=== PATIENT | male | born 1980 | race Caucasian/White ===

== ENCOUNTER 2017-02-28 23:29 | Emergency (ER) | payer MEDICAID ==
[2017-02-28 23:40] VITALS: TEMP 97.9
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
[2017-03-01] MEDS ORDERED: IBUPROFEN 600 MG TAB PO ONE (00:11)
[2017-03-01] MEDS ORDERED: traMADol 50 MG TAB PO ONE (00:11)
[2017-03-01 00:58] VITALS: BP 126/68; PULSE 86; RESP 14; O2SAT 92
== END 2017-03-01 00:58 | disposition home or self-care (01) ==
PROC: 2W3DX1Z Immobilization of Left Lower Arm using Splint (ICD-10-PCS; principal; 2017-02-28)
DX: S52.502A Unspecified fracture of the lower end of left radius, initial encounter for closed fracture (principal); S63.502A Unspecified sprain of left wrist, initial encounter; F17.200 Nicotine dependence, unspecified, uncomplicated; V18.0XXA Pedal cycle driver injured in noncollision transport accident in nontraffic accident, initial encounter; Y92.410 Unspecified street and highway as the place of occurrence of the external cause; Y99.8 Other external cause status; Y93.55 Activity, bike riding

== ENCOUNTER 2017-04-30 18:08 | Inpatient (IN) | payer MEDICAID ==
[2017-04-30] MEDS ORDERED: ACETAMINOPHEN 500 MG TAB PO ONE (18:29)
[2017-04-30] MEDS ORDERED: IBUPROFEN 200 MG TAB PO ONE (18:29)
[2017-04-30] MEDS ORDERED: NS 2,000 ML IV ONE (18:29)
--- NOTE | 2017-04-30 18:32 | EDPHY ---
H & P Stated Complaint: THROAT PAIN FEVER X 3 DAYS - Personal History Current Tetanus/Diphtheria Vaccine: No Current Tetanus Diphtheria and Acellular Pertussis (TDAP): No - Medical/Surgical History Hx Asthma: No Hx Chronic Respiratory Disease: No Hx Diabetes: No Hx Cardiac Disease: No Hx Renal Disease: No Hx Cirrhosis: No Hx Alcoholism: No Hx HIV/AIDS: No Hx Splenectomy or Spleen Trauma: No Other PMH: ASTHMA. IV DRUG USERS CLEAN 7 YEARS - Social History Smoking Status: Heavy smoker Time Seen by Provider: 04/30/17 18:22 HPI/ROS: CHIEF COMPLAINT: Flu-like symptoms x3 days HISTORY OF PRESENT ILLNESS: 36-year-old homeless male, daily smoker, no influenza vaccination, took the bus to the ER complaining of 3 days of flu-like symptoms including myalgias, fever, chills, cough, sore throat. No history of chronic pulmonary disease. No nuchal rigidity no abdominal pain. No nausea or vomiting. No rash. No back pain.. PRIMARY CARE PROVIDER:None REVIEW OF SYSTEMS: A ten point review of systems was performed and is negative with the exception of the items mentioned in the HPI PAST MEDICAL & SURGICAL HISTORY: No influenza vaccination SOCIAL HISTORY: Daily smoker. Homeless. PHYSICAL EXAM (Prior to examination, patient consented to physical exam, hands were washed and my usual and customary physical exam procedures followed) 1) GENERAL: Well-developed, well-nourished, alert and oriented. Appears nontoxic 2) HEAD: Normocephalic, atraumatic 3) HEENT: Pupils equal, round, reactive to light bilaterally. Sclera anicteric. Nasopharynx, oropharynx, clear, no lesions. No tonsillar enlargement or exudate. Posterior oropharynx is erythematous. Ears bilaterally with normal tympanic membranes. 4) NECK: Full range of motion, no meningeal signs. No adenopathy 5) LUNGS: Clear auscultation bilaterally, no wheezes, no rhonchi, no retractions. 6) HEART: Regular rate and rhythm, no murmur, no heave, no gallop. 7) ABDOMEN: No guarding, no rebound, no focal tenderness, negative McBurney's, negative Braxton's, negative Rovsing's, negative peritoneal sign, 8) MUSCULOSKELETAL: Moving all extremities, no focal areas of tenderness, no obvious trauma. No peripheral edema or discoloration. 9) BACK: No CVA tenderness. 10) SKIN: No rash, no petechiae. 11) Psychiatric: Patient is oriented X 3, there is no agitation. DIFFERENTIAL DIAGNOSIS: In no particular include but limited to influenza, pneumonia, bronchitis, meningitis (Rafa Duggan) Constitutional: Initial Vital Signs Temperature (C) 39.3 C H 04/30/17 18:10 Heart Rate 148 H 04/30/17 18:10 Respiratory Rate 18 04/30/17 18:10 Blood Pressure 125/87 H 04/30/17 18:10 O2 Sat (%) 94 04/30/17 18:10 O2 Delivery Mode Room Air Allergies/Adverse Reactions: No Known Allergies Allergy (Unverified 02/28/17 23:36) Home Medications: Medication Instructions Recorded NK [No Known Home Meds] 02/28/17 Medical Decision Making - Diagnostics Imaging Results: Imaging Impressions Chest X-Ray 04/30/17 18:29 Impression: Right upper lobe pneumonia. Recommend follow-up chest x-ray in 6-[address] weeks to verify resolution[address] Dr[address] Miranda discussed these findings by telephone with Rafa Duggan on 2017 at 19:00 hours. Images reviewed by myself (Rafa Duggan) ED Course/Re-evaluation: 6:30 p.m.: Patient is tachycardic, febrile. Will obtain IV access, administer ibuprofen, acetaminophen, IV hydration, laboratory studies. Care of patient under supervision of secondary supervising physician Dr Soares with whom I discussed care 8:00 p.m.: Severe sepsis to cleared on this patient, lactate 2.6. Given IV hydration. Given ibuprofen, Motrin, remains tachycardic and febrile. Noted to have a right upper lobe infiltrate with negative influenza. He is maintain normal saturations. He is homeless. I do not think that discharge is appropriate for this patient. Plan will be admission, ceftriaxone, azithromycin. Consultation with hospitalist Dr. Chaudhry who will admit patient. (Rafa Duggan) I have discussed case with Bassem Duggan. We have evaluated the laboratory studies I have evaluated the patient. This patient has lightly elevated lactate and a a right middle lobe infiltrate. We will treat him for community- acquired pneumonia. We will repeat a lactate were hydrated him. I do not believe this patient has severe sepsis. He will be admitted on spray ache. He has received azithromycin and ceftriaxone and IV hydration. (Kaz Soares ) - Data Points Laboratory Results: Laboratory Results 04/30/17 18:30 04/30/17 18:30 04/30/17 04/30/17 04/30/17 19:00 18:35 18:30 WBC RBC Hgb Hct MCV MCH MCHC RDW Plt Count MPV Neut % (Auto) Lymph % (Auto) [place] % (Auto) Eos % (Auto) Baso % (Auto) Nucleat RBC Rel Count Absolute Neuts (auto) Absolute Lymphs (auto) Absolute Monos (auto) Absolute Eos (auto) Absolute Basos (auto) Absolute Nucleated RBC Immature Gran % Seg Neutrophils % Band Neutrophils % Lymphocytes % Monocytes % Immature Gran # Absolute Seg Neuts Absolute Band Neuts Absolute Lymphocytes Absolute Monocytes RBC/WBC/PLT Morphology Platelet Estimate VBG Lactic Acid 2.6 mmol/L H mmol/L (0.7-2.1) Sodium 131 mEq/L L mEq/L (134-144) Potassium 3.9 mEq/L mEq/L (3.5-5.2) Chloride 95 mEq/L L mEq/L (97-110) Carbon Dioxide 22 mEq/l mEq/l (22-31) Anion Gap 14 mEq/L mEq/L (8-16) BUN 9 mg/dL mg/dL (7-23) Creatinine 0.6 mg/dL L mg/dL (0.7-1.3) Estimated GFR > 60 Glucose 139 mg/dL H mg/dL (70-100) Calcium 9.3 mg/dL mg/dL (8.5-10.4) Nasal Influenza A PCR NEGATIVE FOR FLU A (NEGATIVE) Nasal Influenza B PCR NEGATIVE FOR FLU B (NEGATIVE) 04/30/17 18:30 WBC 15.37 10^3/uL H 10^3/uL (3.80-9.50) RBC 4.48 10^6/uL 10^6/uL (4.40-6.38) Hgb 15.4 g/dL g/dL (13.7-17.5) Hct 41.4 % % (40.0-51.0) MCV 92.4 fL fL (81.5-99.8) MCH 34.4 pg H pg (27.9-34.1) MCHC 37.2 g/dL H g/dL (32.4-36.7) RDW 12.3 % % (11.5-15.2) Plt Count 283 10^3/uL 10^3/uL (150-400) MPV 9.2 fL fL (8.7-11.7) Neut % (Auto) Not Reported Lymph % (Auto) Not Reported [place] % (Auto) Not Reported Eos % (Auto) Not Reported Baso % (Auto) Not Reported Nucleat RBC Rel Count 0.0 % % (0.0-0.2) Absolute Neuts (auto) Not Reported Absolute Lymphs (auto) Not Reported Absolute Monos (auto) Not Reported Absolute Eos (auto) Not Reported Absolute Basos (auto) Not Reported Absolute Nucleated RBC 0.00 10^3/uL 10^3/uL (0-0.01) Immature Gran % Not Reported Seg Neutrophils % 79 % % Band Neutrophils % 12 % % Lymphocytes % 8 % % Monocytes % 1 % % Immature Gran # Not Reported Absolute Seg Neuts 12.14 10^/uL H 10^/uL (1.70-6.50) Absolute Band Neuts 1.84 10^3/uL H 10^3/uL (0.00-0.70) Absolute Lymphocytes 1.23 10^3/uL 10^3/uL (1.00-3.00) Absolute Monocytes 0.15 10^3/uL L 10^3/uL (0.30-0.80) RBC/WBC/PLT Morphology NORMAL (NORMAL) Platelet Estimate ADEQUATE (ADEQ) VBG Lactic Acid Sodium Potassium Chloride Carbon Dioxide Anion Gap BUN Creatinine Estimated GFR Glucose Calcium Nasal Influenza A PCR Nasal Influenza B PCR Medications Given: Ceftriaxone Sodium/Dextrose (Rocephin 1 Gm (Premix)) 50 mls @ 100 mls/hr IV DAILY SUKI PRN Reason: Protocol Stop: 05/30/17 19:59 Last Admin: 04/30/17 20:06 Dose: 50 mls Discontinued Medications Acetaminophen (Tylenol) 1,000 mg PO EDNOW ONE Stop: 04/30/17 18:30 Last Admin: 04/30/17 18:34 Dose: 1,000 mg Sodium Chloride (Ns) 2,000 mls @ 0 mls/hr IV ONCE ONE PRN Reason: Wide Open Stop: 04/30/17 18:30 Last Admin: 04/30/17 18:34 Dose: 2,000 mls Ibuprofen (Motrin) 800 mg PO EDNOW ONE Stop: 04/30/17 18:30 Last Admin: 04/30/17 18:34 Dose: 800 mg Departure - Departure Disposition: [facility] Inpatient Acute Clinical Impression: Pneumonia Qualifiers: Pneumonia type: due to unspecified organism Laterality: right Lung location: upper lobe of lung Qualified Code(s): J18.1 - Lobar pneumonia, unspecified organism Condition: Fair
[2017-04-30 18:44] LABS: PLATELET COUNT 283 10^3/uL (150-400)
[2017-04-30] MEDS ORDERED: AZITHROMYCIN IV 500 MG in D5W 250 ML IV SCH (20:00)
[2017-04-30] MEDS ORDERED: ONDANSETRON DISINTEGRATING 4 MG TAB PO PRN (21:16)
[2017-04-30] MEDS ORDERED: ONDANSETRON 4 MG/2 ML VIAL IVP PRN (21:16)
[2017-04-30] MEDS ORDERED: LR 1,000 ML IV SCH (21:30)
--- NOTE | 2017-04-30 21:54 | GHP ---
[f rep st] HISTORY AND PHYSICAL DATE OF ADMISSION: 04/30/2017 CHIEF COMPLAINT: Feeling poorly. HISTORY OF PRESENT ILLNESS: 36-year-old homeless man, who presents with 2 days of fevers, chills, co ugh, not very productive of sputum. Overall feeling very poorly. He has no known immunodeficiencies but has never been tested for HIV. He has a history of IV drug use but he has not used for 7 years. He has not really been exposed to any other sick contacts as he does not stay at the [facility] er frequently. PAST MEDICAL/SURGICAL HISTORY: History of IV drug abuse, now sober. MEDICATIONS: Please see medication reconciliation. ALLERGIES: None. SOCIAL HISTORY: He is homeless. He occasionally drinks alcohol but not regularly. FAMILY HISTORY: Reviewed and noncontributory. REVIEW OF SYSTEMS: 10-point review of systems is conducted and is negative except per HPI. PHYSICAL EXAM: VITAL SIGNS: Blood pressure 113/67, heart rate 112, respiration rate 16, sat 96% on room air. Initial temperature 39. GENERAL: The patient is a pleasant man, who appears somewhat unco mfortable. He is sweaty. HEENT: Shows him to be normocephalic, atraumatic. CARDIOVASCULAR: Shows him to be tachycardic. There are no murmurs, rubs, or gallops. PULMONARY: Mild crackles on the ri ght side of his lungs. Otherwise, he is not in any significant respiratory distress. ABDOMEN: Soft , nontender, nondistended. SKIN: No rash. : No White. NEUROLOGIC: Shows him to be alert and o riented x3. He is moving all extremities. PSYCHIATRIC: Normal mood and affect. LABS: White count is 15.3. Lactate 2.6 down to 2.2. Sodium 131, creatinine 0.6. Is negative for i nfluenza. DATA: 1. Chest x-ray, which I personally viewed and interpreted, shows right upper lobe pneumonia. 2. I discussed this with Bassem Gonzáles. Will admit to Med Surg. IMPRESSION AND PLAN: 1. Community-acquired pneumonia: Will check full respiratory PCR, sputum culture. Check procalcito sita. Agree with treatment with Rocephin and azithromycin. 2. History of IV drug abuse: I discussed with him checking HIV and hepatitis; he is agreeable to is. I have ordered these. He has been clean for some time now. 3. Sepsis evidenced by leukocytosis, tachycardia, fever in the setting of a pneumonia: He has been treated aggressively with fluids. We will follow his vitals closely and his response to antibiotics. /[id number]/MODL
[2017-04-30] MEDS: LR 1,000 ML IV SCH (22:59)
[2017-04-30] MEDS: ACETAMINOPHEN 325 MG TAB PO PRN (23:47)
[2017-04-30] MEDS: diphenhydrAMINE 25 MG CAP PO PRN (23:47)
[2017-05-01 02:59] LABS: HEPATITIS B SURFACE ANTIGEN NEGATIVE (NEGATIVE)
[2017-05-01 03:06] LABS: HEPATITIS A ANTIBODY IGM (BCH) NEGATIVE (NEGATIVE); HEPATITIS B CORE AB IGM NEGATIVE (NEGATIVE)
[2017-05-01 03:17] LABS: HEPATITIS C ANTIBODY TOTAL NEGATIVE (NEGATIVE)
[2017-05-01 05:20] LABS: PLATELET COUNT 252 10^3/uL (150-400)
[2017-05-01] MEDS: ACETAMINOPHEN 325 MG TAB PO PRN ×2 (06:31→11:40)
[2017-05-01] MEDS: LR 1,000 ML IV SCH ×2 (06:32→17:24)
--- NOTE | 2017-05-01 08:00 | PDMN ---
Medical Necessity Medical necessity: est los>2mn for CAP with sepsis evidenced by leukocytosis, tachycardia, and fever; admit for IV abx; comorbid homelessness, hx IVDA; per order and H&P 04/30/17
[2017-05-01] MEDS: AZITHROMYCIN IV 500 MG in D5W 250 ML IV SCH (08:23)
--- NOTE | 2017-05-01 11:58 | HOSPPROG ---
Hospitalist Progress Note Assessment/Plan: New patient encounter #Sepsis #Community Acquired pneumonia #Homelessness #hx of IVDA, clean for several years Plan: -cont IVF, will decrease slightly -cont Rocephin and Azithromycin -Start SCD's -Provide [place] for pain mgmt, he is requesting this and is aware of all risks given his hx of IVDA -Dispo: inpatient Subjective: still with tachycardia. Still not feeling good. Although feels better. BP ok. Objective: Vital Signs Temp Pulse Resp BP Pulse Ox 37.2 C 99 18 130/85 H 100 05/01/17 11:32 05/01/17 11:32 05/01/17 11:32 05/01/17 11:32 05/01/17 11:32 Laboratory Results 05/01/17 04:39 05/01/17 04:39 04/30/17 05/01/17 05/02/17 05:59 05:59 05:59 Output Total 1500 Balance -1500 - Physical Exam Constitutional: no apparent distress Eyes: PERRL Ears, Nose, Mouth, Throat: moist mucous membranes, hearing normal Cardiovascular: regular rate and rhythym, No edema Respiratory: no respiratory distress, reduced air movement Gastrointestinal: normoactive bowel sounds, soft, non-tender abdomen Skin: warm Musculoskeletal: full muscle strength Neurologic: AAOx3 Psychiatric: interacting appropriately, not anxious, not encephalopathic, thought process linear Lymph, Heme, Immunologic: No petechiae ICD10 Worksheet Patient Problems: Problems Problem Status Onset Pneumonia Acute
[2017-05-01] MEDS: HYDROCODONE/APAP 5/325 TAB PO PRN ×3 (12:48→22:04)
--- NOTE | 2017-05-01 15:38 | ASMTCMCOM ---
CM Note CM Note Notes: Pt. is a 36-year-old man admitted with PNA. Pt. is homeless and living mostly outdoors at this time. Hx. IVDU - sober some 7 years per notes. SWer met w/ Pt. in room today. Pt. friendly and interested in getting back on his feet. Pt. states he has a court date in . [place] on 05/05/17. Interested in trying to get a continuance. SWer provided phone number for [facility] for Pt. Also left [facility] for Jayshree Dominguez, [facility] Homeless Navigator to see if she knows how to get bus ticket for Pt. to make his Court date in [facility]. Pt. states he has two sons ages 17 and 14 and "hopes to get [his] family back together" soon. Pt. states he underestimated how hard it would be to move back to [place] as winter was approaching. Pt. states he left [place] in 2009. 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 Although Pt. has been frustrated by [place] [facility] telling him to go to [facility] and not admitting him there, he is willing to take [facility] bed and go next day to [facility]. CATALINO/ONI to follow. Date Signed: 05/01/2017 03:38 PM Electronically Signed By:Genevieve Newell LCSW
[2017-05-01] MEDS: diphenhydrAMINE 25 MG CAP PO PRN (22:04)
[2017-05-02] MEDS: HYDROCODONE/APAP 5/325 TAB PO PRN ×4 (04:23→20:27)
[2017-05-02] MEDS: LR 1,000 ML IV SCH (04:24)
[2017-05-02 05:09] LABS: PLATELET COUNT 274 10^3/uL (150-400)
[2017-05-02] MEDS: AZITHROMYCIN IV 500 MG in D5W 250 ML IV SCH (08:22)
--- NOTE | 2017-05-02 10:08 | HOSPPROG ---
Hospitalist Progress Note Assessment/Plan: #Sepsis, resolving #Community Acquired pneumonia #Homelessness #hx of IVDA, clean for several years Plan: -trial off IVF -cont Rocephin and Azithromycin -cont SCD's -cont [place] for pain mgmt, he is requesting this and is aware of all risks given his hx of IVDA -Dispo: cont inpatient Subjective: Feels better. Still with cough. BP better. Tachycardia resolved. Still on RA. Still feels weak. No CP. NO SOB. No pedal edema Objective: Vital Signs Temp Pulse Resp BP Pulse Ox 36.9 C 65 16 123/81 H 96 05/02/17 07:58 05/02/17 07:58 05/02/17 07:58 05/02/17 07:58 05/02/17 07:58 Laboratory Results 05/02/17 04:20 05/01/17 04:39 05/01/17 05/02/17 05/03/17 05:59 05:59 05:59 Intake Total 1996 Output Total 1500 225 Balance -1500 1772 - Physical Exam Constitutional: no apparent distress Eyes: PERRL, EOMI Ears, Nose, Mouth, Throat: moist mucous membranes, hearing normal Cardiovascular: regular rate and rhythym, No edema Respiratory: rhonchi Gastrointestinal: normoactive bowel sounds, soft, non-tender abdomen Genitourinary: no bladder fullness Neurologic: AAOx3 Psychiatric: interacting appropriately, not anxious, not encephalopathic Lymph, Heme, Immunologic: No petechiae ICD10 Worksheet Patient Problems: Problems Problem Status Onset Pneumonia Acute
--- NOTE | 2017-05-02 17:21 | ASMTCMCOM ---
CM Note CM Note Notes: [facility] Homeless Navigator, Jayshree Dominguez and Sabine connected over email today. Jayshree stated Pt. could call her at . Gave Pt. information about Jayshree's number to seek bus transportation to [facility] date and also information about [facility] site. Pt. would also like [facility] bed on day of d/c. Pt. very grateful and a pleasure to meet with. CM to follow. Date Signed: 05/02/2017 05:20 PM Electronically Signed By:Genevieve Newell LCSW
[2017-05-02] MEDS: diphenhydrAMINE 25 MG CAP PO PRN (23:29)
[2017-05-03] MEDS ORDERED: AMOXICILLIN/CLAVULANATE POT 875/125 MG TAB PO SCH
[2017-05-03] MEDS ORDERED: HYDROCODONE/APAP 5/325 TAB PO SCH
[2017-05-03 08:12] VITALS: RESP 14
[2017-05-03] MEDS: HYDROCODONE/APAP 5/325 TAB PO PRN ×2 (08:13→13:15)
[2017-05-03] MEDS: AZITHROMYCIN IV 500 MG in D5W 250 ML IV SCH (09:07)
--- NOTE | 2017-05-03 10:54 | PDDCSUM ---
Discharge Summary Discharge Summary: 36 yo homeless male admitted with sepsis and CAP. Now better. Treated with Rocephin and Azithromycin will complete Augment regimen on RA VSS F/U: PCP NEXT WEEK DDX #Sepsis, resolving #Community Acquired pneumonia #Homelessness #hx of IVDA, clean for several years Exam: VSS, RA NAD AAOX3 RRR MILDY COARSE BREATH SOUNDS, NORMAL WORK OF BREATHING S/NT/ND NO LE EDEMA MEDS: SEE MED REC. NORCO AND AUGMENTIN PROVIDED TOTAL CARE TIME SPENT ON D/C IS 35 MINS
[2017-05-03 12:00] VITALS: BP 128/80; PULSE 79; TEMP 98.4; O2SAT 97
--- NOTE | 2017-05-03 15:36 | ASDISCHSUM ---
Discharge Information Plan Status:Homeless/Skilled Nursing Medically Cleared to Leave: Discharge Date:05/03/2017 02:56 PM CM D/C Disposition: ADT D/C Disposition:Home, Routine, Self-Care Projected Discharge Date:05/03/2017 02:56 PM Transportation at D/C:Bus Ticket Discharge Delay Reason: Follow-Up Date:05/03/2017 02:56 PM Discharge Slot: Final Diagnosis: Placement Information Patient Contact Information Contact Name:BURAK Relationship:Life Partner Address:[address] Work Phone: City:[place] Phone: State/Zip Code:[place] [address] Email: Financial Information Financial Class: Primary Plan Desc:[employer] [place] Primary Plan Number:[id number] Secondary Plan Desc: Secondary Plan Number: Assessment Information [facility] CM Progress Note CM Note CM Note Notes: Pt. is a 36-year-old man admitted with PNA. Pt. is homeless and living mostly outdoors at this time. Hx. IVDU - sober some 7 years per notes. Sabine met w/ Pt. in room today. Pt. friendly and interested in getting back on his feet. Pt. states he has a court date in [facility] on 05/05/17. Interested in trying to get a continuance. Sabine provided phone number for [facility] for Pt. [place] [facility] [place]ayshree Dominguez, [facility] Homeless Navigator to see if she knows how to get bus ticket for Pt. to make his Court date in [facility]. Pt. states he has two sons ages 17 and 14 and "hopes to get [his] family back together" soon. Pt. states he underestimated how hard it would be to move back to [place] as winter was approaching. Pt. states he left [place] in 2009. 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 Although Pt. has been frustrated by [facility] telling him to go to [facility] and not admitting him there, he is willing to take [facility] Skilled Nursing bed and go next day to [facility]. CATALINO/ONI to follow. Date Signed: 05/01/2017 03:38 PM Electronically Signed By:Genevieve Newell LCSW [facility] CM Progress Note CM Note CM Note Notes: [facility] Homeless Navigator, Jayshree Dominguez and Sabine connected over email today. Jayshree stated Pt. could call her at . Gave Pt. information about Jayshree's number to seek bus transportation to [facility] [address] date and also information about [facility] site. Pt. would also like [facility] Skilled Nursing bed on day of d/c. Pt. very grateful and a pleasure to meet with. ONI to follow. Date Signed: 05/02/2017 05:20 PM Electronically Signed By:Genevieve Newell LCSW Case Management Discharge Plan Note Case Management Discharge Discharge Order Complete? Answers: Yes Patient to Obtain Answers: via MAP Medications Transportation Arranged Answers: Bus Tokens Discharge Comments Notes: SWer provided Pt. w/ information on how to get [facility] appt, how to get to [facility] intake, and arranged for [facility] bed for tonight. Provided bus pass. [facility]ed complete meds due to weekend and because Pt. has no money at all. Pt. plans to follow up w/ Liz Garcia to get greyhound bus pass to [facility] for Court date. Pt. grateful. Date Signed: 05/03/2017 03:35 PM Electronically Signed By:Genevieve Newell LCSW Intervention Information Intervention Type:*Incorrect Registration Date of Service:05/01/2017 07:53 AM Patient Type:Observation Staff Member:OJ Alfonso, Hannah Hours: Discipline: Severity: Comment:
== END 2017-05-03 14:56 | disposition home or self-care (01) | DRG 871 ==
LOC: F3E 21:11 → OBSVTOIN 21:15
PROVIDERS: ADMIT Student in an Organized Health Care Education/Training Program; ATTEND Family Medicine
DX: A41.9 Sepsis, unspecified organism (principal); J18.9 Pneumonia, unspecified organism; Z59.0 Homelessness; J45.909 Unspecified asthma, uncomplicated; F17.200 Nicotine dependence, unspecified, uncomplicated
CPT/HCPCS: 96365; G0472; J0456; J0696